=== PATIENT | male | born 1970 | race Caucasian/White ===

== ENCOUNTER 2024-07-24 13:50 | Emergency (ER) | payer OTHER, SELFPAY ==
[2024-07-24 13:58] VITALS: BP 162/96
[2024-07-24 14:41] VITALS: BMI 29.9
--- NOTE | 2024-07-24 16:12 | ED.SKININJ ---
HPI-Injury
General
Chief Complaint: Head Injury
Time Seen by Provider: 07/24/24 14:42
History of Present Illness-Injury
Initial Injury comments:
53-year-old male without significant past medical history to the emergency department after a fall off of a ladder. Patient reports he fell trying to put up [employer] lights and believes that he struck the side of his house with the right side of
his head suffering a laceration over his eye and his ear. Denies loss of consciousness. He is not on any blood thinners. Denies neck pain, extremity pain, chest, abdomen pain. Denies fever or recent illness. Fall occurred last evening. Tetanus
is up-to-date. Denies additional acute medical complaints
Phy Exam
Physical Exam
Physical Exam:
General: Well-appearing, no clinical signs of dehydration, nontoxic and in no acute distress
HEENT: protecting airway, no hemotympanum bilaterally. Large laceration at the right ear, going into the antihelix and ana. No involvement to the inner ear canal. Large laceration above the right eyebrow, subcutaneous
Neck: appears supple, no tenderness
CV: Normal heart rate, regular rhythm
Resp: No accessory muscle use, no increased work of breathing, lungs clear to auscultation bilaterally
Abd: No distention
Extremities: No deformities, no swelling
Neuro: alert, no focal neurologic deficit
: deferred
Rectal: deferred
Psych: Normal affect
Skin: Intact
Course
Orders/Labs/Results
Orders:
Orders
07/24/24 14:02
CT Head W/o Iv Contrast Urgent
Comment:
Reason For Exam: head injury
Vital Signs
Initial and Last Documented VS:
Initial Vital Signs
Temp Pulse Resp BP Pulse Ox
99.1 F 90 16 162/96 98
07/24/24 13:58 07/24/24 13:58 07/24/24 13:58 07/24/24 13:58 07/24/24 13:58
Last Documented Vital Signs
Temp Pulse Resp BP Pulse Ox
99.1 F 90 16 162/96 98
07/24/24 13:58 07/24/24 13:58 07/24/24 13:58 07/24/24 13:58 07/24/24 13:58
Procedures
Laceration Closure
Right Forehead:
Status of Wound: clean
Size of Wound in cm: 6
Description of Wound Edges: sharp
Preparation: cleaned with saline
Anesthesia: 1% Lidocaine
Type of Closure: single layer closure
Skin Closure Material: 4-0 prolene
Number of sutures: 5
Right Ear:
Status of Wound: clean
Size of Wound in cm: 6
Description of Wound Edges: sharp
Preparation: cleaned with saline
Anesthesia: 1% Lidocaine
Type of Closure: single layer closure
Skin Closure Material: 4-0 prolene
Number of sutures: 8
MDM/Problems Addressed
MDM/Problems Addressed:
53-year-old male presenting after a fall off of a ladder, reports about 5 feet with subsequent lacerations to the head and ear. Vital signs are significant for mild hypertension.
On exam patient is well-appearing, resting comfortably. Patient with obvious signs of head trauma. Given mechanism with signs of trauma, plan for CT brain imaging. Imaging completed prior to my assessment, no intracranial abnormality. No
additional signs of trauma on exam, tetanus up-to-date. No postconcussive symptoms, no focal neurologic deficits. Lacerations were repaired, complicated. Please see procedure note. Otherwise feel stable for discharge. Return precautions
discussed and patient verbalized understanding
*Critical Care Note
Total Time (30-74mins, 75-104mins- exclusive of procedures): Not Applicable
ED Attending Note
-
Portions of this chart may have been created with voice recognition software.� Occasional wrong word or��sound alike� substitutions may have occurred due to the inherent limitations of voice recognition software.
Discharge Plan
Departure
Patient Disposition: Home (Routine Discharge)
Date of Disposition: 07/24/24
Time of Disposition: 16:09
Patient with high blood pressure during this ER visit?: No
Condition: Good
Discharge Problem:
Head injury due to trauma, Facial laceration, Laceration of ear region
Instructions: Laceration Repair With Stitches (DC), Minor Head Injury (DC)
Referrals:
Mirna Biggs MD [Family Provider] -
Stand Alone Forms: Return to Work
Activity Restrictions/Additional Instructions:
You were seen in the emergency department for fall
You were found to have laceration to your face and your ear. You will need sutures removed in 5 to 7 days. You had 8 sutures placed in your ear and 5 on your face.
Please follow-up closely with your primary care physician.
Return to the emergency department for any increased swelling to laceration sites with redness or abnormal drainage, or any development of chest pain, difficulty breathing, abdominal pain with persistent vomiting and inability to tolerate food or
liquid by mouth (concern for dehydration), weakness, headache or confusion, fever greater than 100.4, or any additional symptoms that are concerning to you.
Thank you for choosing [facility].
Interventions
Interventions:
*Risk Screen - Suicide Last Done: 07/24/24 14:41
*General Assessment Last Done: 07/24/24 14:41
*Neglect/Abuse Screening Last Done: 07/24/24 14:41
ED- Neurological Assessment Last Done: 07/24/24 14:41
ED-Skin Assessment Last Done: 07/24/24 14:41
Discharge Date and Time
Print Language: ICELANDIC
== END 2024-07-24 16:40 | disposition home or self-care (01) ==
LOC: EMR 13:50
PROVIDERS: EMERGENCY PHYSICIAN Student in an Organized Health Care Education/Training Program; FAMILY PHYSICIAN Family Medicine
DX: S09.90XA Unspecified injury of head, initial encounter (principal); S01.81XA Laceration without foreign body of other part of head, initial encounter; S01.311A Laceration without foreign body of right ear, initial encounter; W11.XXXA Fall on and from ladder, initial encounter; Y93.89 Activity, other specified; Y92.008 Other place in unspecified non-institutional (private) residence as the place of occurrence of the external cause
CPT/HCPCS: 99284; 12014; 70450